=== PATIENT | male | born 1990 | race Caucasian/White ===

== ENCOUNTER 2017-01-13 19:37 | Emergency (ER) | payer OTHER ==
[~2017-01-13 19:37] MED LIST: AMOXICILLIN500 M1 PO; ANUSOL30 G1 EXT; COLACE PO; NO MEDICATIONS; TYLENOL #3 PO; VOLTAREN75 MG PO
== END 2017-01-13 20:12 | disposition home or self-care (01) ==
LOC: SED 19:37
DX: N34.2 Other urethritis (principal); F17.200 Nicotine dependence, unspecified, uncomplicated
CPT/HCPCS: 96372; 99283; J0696